=== PATIENT | female | born 1945 | race Caucasian/White ===

== ENCOUNTER 2017-01-17 15:21 | Emergency (ER) | payer OTHER ==
[2017-01-17 15:22] VITALS: BP 148/62; PULSE 57; RESP 16; TEMP 98.9; O2SAT 96
--- NOTE | 2017-01-17 15:31 | PD ---
Physical Exam Time Seen by Provider: 15:30 Narrative 71 y/o female presents for evaluation of abdominal pressure, bilateral flank discomfort, dysuria. Symptoms started 5 weeks ago. RX Levaquin on january 12 for uti but she did not want to take the levaquin because the list of potential adverse effects scared her. vss Seen at triage desk. Awaiting bed placement. Data Data Last Documented VS Vital Signs Date Time Temp Pulse Resp B/P Pulse Ox O2 Delivery O2 Flow Rate FiO2 01/17/17 15:22 98.9 57 16 148/62 96 Room Air [facility] Medical Record Reviewed: Yes Supervised Visit with BALDO: No Rodo Mahajan January 17, 2017 15:31
--- NOTE | 2017-01-17 20:12 | PD ---
HPI Chief Complaint: Complaint Time Seen by Provider: 19:45 Travel History International Travel<30 days: No Contact w/Intl Traveler<30days: No Traveled to known affect area: No History of Present Illness HPI Patient is a 71-year-old female who presents to emergency room with complaints of dysuria, urinary urgency and frequency. Patient reports that she has been having these symptoms for the past 5 weeks, reports that on January 12, 2017, she went to [place] and had her [place] tested - reports that she was told that she had a UTI. Patient reports that the [place] physician wrote her for Levaquin on 01/12 - patient reports that she read the side effect of the medication and decided not to take it as she has "enough joint problems as is." Patient reports that she has been having increased bilateral flank pain as well as lower abdominal pressure along with dysuria, urinary urgency and frequency for the past 5 weeks. Patient with no fevers or chills. Patient with no other complaints at this time. Patient denies any nausea or or vomiting. PFSH Social History Tobacco Use: No Allergies-Medications (Allergen,Severity, Reaction): Coded Allergies: Cephalosporins (Verified Allergy, Severe, Rash, 01/17/17) Iodine (Verified Allergy, Severe, Rash, 01/17/17) Librium (Verified Allergy, Severe, 01/17/17) PT STATES "INTENSIFIES PAIN." Penicillin (Verified Allergy, Severe, Rash, 01/17/17) Sulfa (Verified Allergy, Severe, Chills, 01/17/17) Ultram (Verified Allergy, Severe, 01/17/17) PT STATES "INTENSIFIES PAIN." Valium (Verified Allergy, Severe, 01/17/17) PT STATES "INTENSIFIES PAIN." Reported Meds & Prescriptions Reported Meds & Active Scripts Active Reported Aspirin 81 Mg Chew 81 Mg CHEW DAILY Atenolol 25 Mg Tab 12.5 Mg PO DAILY Levothyroxine (Levothyroxine Sodium) 50 Mcg Tab 50 Mcg PO DAILY Review of Systems General / Constitutional: No: Fever Eyes: No: Visual changes HENT: No: Headaches Cardiovascular: No: Chest Pain or Discomfort Respiratory: No: Shortness of Breath Gastrointestinal: No: Abdominal Pain Genitourinary: Positive: Urgency, Frequency, Dysuria, No: Hematuria, Pelvic Pain Musculoskeletal: No: Pain Skin: No Rash Neurologic: No: Weakness Psychiatric: No: Depression Endocrine: No: Polydipsia Hematologic/Lymphatic: No: Easy Bruising Physical Exam Narrative GENERAL: No acute distress, nontoxic SKIN: Focused skin assessment warm/dry. HEAD: Atraumatic. Normocephalic. EYES: Pupils equal and round. No scleral icterus. No injection or drainage. ENT: No nasal bleeding or discharge. Mucous membranes pink and moist. NECK: Trachea midline. No JVD. CARDIOVASCULAR: Regular rate and rhythm. No murmur appreciated. RESPIRATORY: No accessory muscle use. Clear to auscultation. Breath sounds equal bilaterally. GASTROINTESTINAL: Abdomen soft, non-tender, nondistended. MUSCULOSKELETAL: No obvious deformities. No clubbing. No cyanosis. No edema. Patient with no flank tenderness on exam NEUROLOGICAL: Awake and alert. No obvious cranial nerve deficits. Motor grossly within normal limits. Normal speech. PSYCHIATRIC: Appropriate mood and affect; insight and judgment normal. Data Data Last Documented VS Vital Signs Date Time Temp Pulse Resp B/P Pulse Ox O2 Delivery O2 Flow Rate FiO2 01/17/17 15:22 98.9 57 16 148/62 96 Room Air Orders Urinalysis - C+S If Indicated (01/17/17 19:46) Urine Culture (01/17/17 20:15) Nitrofurantoin Monohyd Macrocr (Macrobid (01/17/17 21:30) Labs Laboratory Tests Test 01/17/17 20:15 Urine Color YELLOW Urine Turbidity CLOUDY Urine pH 6.0 Urine Specific Emerson 1.021 Urine Protein 30 mg/dL Urine Glucose (UA) NEG mg/dL Urine Ketones TRACE mg/dL Urine Occult Blood SMALL Urine Nitrite POS Urine Bilirubin NEG Urine Urobilinogen LESS THAN 2.0 MG/DL Urine Leukocyte Esterase LARGE Urine RBC 27 /hpf Urine WBC /hpf Urine WBC Clumps MOD Urine Squamous Epithelial 2 /hpf Cells Urine Bacteria MANY /hpf Urine Mucus FEW /lpf Microscopic Urinalysis Comment CULTURE INDICATED MDM Medical Decision Making Medical Screen Exam Complete: Yes Emergency Medical Condition: Yes Interpretation(s) Vital Signs Date Time Temp Pulse Resp B/P Pulse Ox O2 Delivery O2 Flow Rate FiO2 01/17/17 15:22 98.9 57 16 148/62 96 Room Air Differential Diagnosis uti, pyelnephritis Narrative Course Patient is a 71-year-old female who presents to emergency room with complaints of dysuria, urinary urgency and frequency for the past 5 weeks. Patient reports that she was started on Levaquin on January 12, 2017 but decided not to take it as there were too many potential adverse effects. Patient at this time requesting a change of antibiotics as she does not want to be on Levaquin. Patient reports that she has not started on Levaquin, reports that she is waiting for the urine culture results from the [place] Laboratory Tests Test 01/17/17 20:15 Urine Color YELLOW (YELLW/STRAW) Urine Turbidity CLOUDY (CLEAR) Urine pH 6.0 (5.0-8.5) Urine Specific Emerson 1.021 (1.002-1.035) Urine Protein 30 mg/dL (NEG-TRACE) Urine Glucose (UA) NEG mg/dL (NEG) Urine Ketones TRACE mg/dL (NEG) Urine Occult Blood SMALL (NEG) Urine Nitrite POS (NEG) Urine Bilirubin NEG (NEG) Urine Urobilinogen LESS THAN 2.0 MG/DL (LESS THAN 2.0) Urine Leukocyte Esterase LARGE (NEG) Urine RBC 27 /hpf (0-3) Urine WBC /hpf (0-5) Urine WBC Clumps MOD (NONE) Urine Squamous Epithelial 2 /hpf (0-5) Cells Urine Bacteria MANY /hpf (NONE) Urine Mucus FEW /lpf (OCC) Microscopic Urinalysis Comment CULTURE INDICATED Microbiology Date/Time Procedure Status Source Growth 01/17/17 20:15 Urine Culture Received Urine Clean Catch Pending Patient will follow up with cultures from today. Patient will return to ER if symptoms worsen or progress Diagnosis Primary Impression: UTI (urinary tract infection) Qualified Code: N30.01 - Acute cystitis with hematuria Patient Instructions: General Instructions Additional Instructions: Please follow up with your primary care doctor in 2-3 days Please follow up with cultures from today Return to ER if symptoms worsen or progress Med/Other Pt SpecificInfo: Prescription(s) given Scripts Nitrofurantoin Monohydrate Macrocrystals (Macrobid)100 Mg [id number] Mg PO BID 10 Days Ref 0 Prov:Aliyah Rod DO 01/17/17 Disposition: 01 DISCHARGE HOME Condition: Stable Aliyah Rod DO January 17, 2017 20:12
[2017-01-17] MEDS ORDERED: LEVO50TA4 PO (20:24)
[2017-01-17] MEDS ORDERED: ATEN25TA PO (20:24)
[2017-01-17] MEDS ORDERED: ASPI81CH CHEW (20:24)
[2017-01-17 21:04] LABS: BACTERIA, URINE MANY /hpf; BLOOD, URINE SMALL (NEG); GLUCOSE,URINE NEG (NEG); KETONE, URINE TRACE mg/dL (NEG); MUCUS URINE FEW /lpf (OCC); NITRITE,URINE POS (NEG); SQUAMOUS EPITHELIAL CELL URINE 2 /hpf (0-5); URINE COLOR YELLOW (YELLW/STRAW)
[2017-01-17 21:05] LABS: COMMENT (UR) CULTURE INDICATED; CULTURE IF INDICATED CULTURE INDICATED
[2017-01-17] MEDS ORDERED: NITROFURANTOIN MONOHYD MACROCR 100 MG CAP PO ONE (21:30)
[2017-01-17] MEDS ORDERED: MACR100C2 PO (21:40)
== END 2017-01-17 21:57 | disposition home or self-care (01) ==
LOC: NEPD 15:21
DX: N30.01 Acute cystitis with hematuria (principal); B96.1 Klebsiella pneumoniae [K. pneumoniae] as the cause of diseases classified elsewhere
CPT/HCPCS: 81001; 87077; 87086; 87186; 99283

== ENCOUNTER 2017-01-20 20:28 | Emergency (ER) | payer OTHER ==
[~2017-01-20] VITALS: Ht 172.7 cm; Wt 75.0 kg
[~2017-01-20 20:28] MED LIST: ASPI81CH CHEW; ATEN25TA PO; LEVO50TA4 PO; MACR100C2 PO
[2017-01-20 20:32] VITALS: BP 167/72; PULSE 57; RESP 14; TEMP 98.1; O2SAT 96
[2017-01-20] MEDS ORDERED: DOXY100C PO (21:10)
--- NOTE | 2017-01-20 21:10 | PD ---
HPI Chief Complaint: Medication Refill Request Time Seen by Provider: 21:09 Travel History International Travel<30 days: No Contact w/Intl Traveler<30days: No Traveled to known affect area: No History of Present Illness HPI 71-year-old female with history of recurrent UTI, several allergies/adverse, side effects of medications, presents to the emergency department requesting a different antibiotic. Patient was recently diagnosed with UTI and started on Cipro. Patient states she is unable to take Cipro because it gives her tremors. She denies any acute symptoms. She has no other symptoms to report. [facility] Past Medical History Medical History: Denies Significant Hx Diminished Hearing: No Gout: Yes Social History Alcohol Use: No Tobacco Use: No Substance Use: No Allergies-Medications (Allergen,Severity, Reaction): Coded Allergies: Cephalosporins (Verified Allergy, Severe, Rash, 01/20/17) Iodine (Verified Allergy, Severe, Rash, 01/20/17) Librium (Verified Allergy, Severe, 01/20/17) PT STATES "INTENSIFIES PAIN." Penicillin (Verified Allergy, Severe, Rash, 01/20/17) Sulfa (Verified Allergy, Severe, Chills, 01/20/17) Ultram (Verified Allergy, Severe, 01/20/17) PT STATES "INTENSIFIES PAIN." Valium (Verified Allergy, Severe, 01/20/17) PT STATES "INTENSIFIES PAIN." Reported Meds & Prescriptions Reported Meds & Active Scripts Active Doxycycline Hyclate 100 Mg Cap 100 Mg PO BID Macrobid (Nitrofurantoin Monoh/Nitrofur Macro) 100 Mg Cap 100 Mg PO BID 10 Days Reported Aspirin 81 Mg Chew 81 Mg CHEW DAILY Atenolol 25 Mg Tab 12.5 Mg PO DAILY Levothyroxine (Levothyroxine Sodium) 50 Mcg Tab 50 Mcg PO DAILY Review of Systems Except as stated in HPI: all other systems reviewed are Neg Physical Exam Narrative GENERAL: Well-nourished, well-developed female patient, ambulatory and in no acute distress SKIN: Focused skin assessment warm/dry. HEAD: Normocephalic. EYES: No scleral icterus. No injection or drainage. NECK: Supple, trachea midline. No JVD or lymphadenopathy. CARDIOVASCULAR: Regular rate and rhythm without murmurs, gallops, or rubs. RESPIRATORY: Breath sounds equal bilaterally. No accessory muscle use. GASTROINTESTINAL: Abdomen soft, non-tender, nondistended. MUSCULOSKELETAL: No cyanosis, or edema. BACK: Nontender without obvious deformity. No CVA tenderness. Data Data Last Documented VS Vital Signs Date Time Temp Pulse Resp B/P Pulse Ox O2 Delivery O2 Flow Rate FiO2 01/20/17 20:32 98.1 57 14 167/72 96 Room Air MDM Medical Decision Making Medical Screen Exam Complete: Yes Emergency Medical Condition: Yes Medical Record Reviewed: Yes Differential Diagnosis Cystitis versus vaginitis versus urethritis Narrative Course 71-year-old female presents to the emergency department for a new antibiotic, stating she cannot take Cipro for UTI. Urine culture grew sensitive to tetracycline. Patient will be started on doxycycline. She states that she does get diarrhea with tetracyclines and is willing to have diarrhea in order to fight her UTI. She agrees to follow-up with a primary care provider and return immediately with any acute worsening of symptoms. Diagnosis Primary Impression: UTI (urinary tract infection) Qualified Code: N39.0 - Urinary tract infection without hematuria, site unspecified Referrals: Primary Care Physician Patient Instructions: General Instructions, Urinary Tract Infection in Women ( ED) Additional Instructions: Maintain adequate oral hydration Follow-up with primary care provider Return immediately with any acute worsening of symptoms Med/Other Pt SpecificInfo: Prescription(s) given Scripts Doxycycline Hyclate 100 Mg [id number] Mg PO BID #14 CAP Ref 0 Prov:Aubree Trimble 01/20/17 Disposition: 01 DISCHARGE HOME Condition: Stable Aubree Trimble January 20, 2017 21:10
== END 2017-01-20 21:22 | disposition home or self-care (01) ==
LOC: NEPK 20:28
DX: N39.0 Urinary tract infection, site not specified (principal); Z76.0 Encounter for issue of repeat prescription
CPT/HCPCS: 99281